=== PATIENT | female | born 1995 | race Caucasian/White ===

== ENCOUNTER 2022-12-27 07:46 | Emergency (ER) | payer OTHER, SELFPAY ==
--- NOTE | ~2022-12-27 | XR_ITS ---
EXAMINATION: XR FOREARM, RIGHT CLINICAL INFORMATION: Forearm pain COMPARISON: None available. TECHNIQUE: AP and lateral views of the right forearm were obtained. FINDINGS: No radiopaque foreign body. No fracture or destructive lesion or alignment abnormality. XR/XR forearm RT 2V IMPRESSION: Negative
[2022-12-27 07:56] VITALS: BP 120/75; PULSE 54; RESP 16; TEMP 36.6; O2SAT 99; BMI 20.1
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
--- OUTSIDE RECORDS SUMMARY | 2022-12-27 08:28 | XMS_ITS | Continuity of Care Document ---
Author Name Unknown [facility] n[facility] Address [address], [address] [place] [address]- Care Team Providers Care Airline Manager Name Role Phone Aldair Lucas DO Primary Care Physician Encounter [facility] Date(s): 08/31/20 - 09/30/20 [facility] Laniemonty MilliganNotizzas [facility] [address], [address] [place], [place] [address] Referring Physician: Keke EUCEDA, Lorranie Soares Allergies, Adverse Reactions, Alerts Substance Reaction Severity Status Keflex Active Medications Jeanne 3 mg-0.03 mg oral tablet 1 tablet, By Mouth, Daily, # 84 tablet, 1 Refills, Maintenance, 04/04/20 16:39:00 EDT, Tablet, [id number], 1 tablet By Mouth Daily, 168, cm, 10/12/19 8:29:00 EDT, Height Start Date: 04/04/20 Status: Ordered Social History Social History Type Response Smoking Status Never (less than 100 in lifetime) entered on: 10/12/19 Sex
--- OUTSIDE RECORDS SUMMARY | 2022-12-27 08:28 | XMS_ITS | Continuity of Care Document ---
Author Name Unknown Organization [facility] Lanie chiuindoo.rss [facility] Address [address], [address] [place] [address]- Care Team Providers Care Law Enforcement Director Name Role Phone Aldair Lucas DO Primary Care Physician [phone] Encounter [facility] Date(s): 07/06/21 - 08/05/21 [facility] Laniemonty Milliganindoo.rss [facility] [address], [address] [place], [place] [address] Allergies, Adverse Reactions, Alerts Substance Reaction Severity Status Keflex Active Medications fluconazole 150 mg oral tablet 1 tablet = 150 mg, By Mouth, Once, repeat dose if still having symptoms in 72 hours, # 2 tablet, 0 Refills, Soft Stop, 07/06/21 15:07:00 EST, Tablet, [id number], Partial fill upon patient request if the prescription is for a schedule II opioid... Start Date: 07/06/21 Status: Ordered Jeanne 3 mg-0.03 mg oral tablet 1 [...]
--- OUTSIDE RECORDS SUMMARY | 2022-12-27 08:28 | XMS_ITS | Continuity of Care Document ---
Author Name Unknown Organization [facility] Lanie Mejia nBuddyTVs [facility] Address [address], [address] [place] [address]- Care Team Providers Care Sales Merchandiser Name Role Phone Aldair Lucas DO Primary Care Physician En[facility] Date(s): 12/04/19 - 01/03/20 [facility]mon[facility] MilliganBuddyTVs [facility] [address], [address] [place] [address]- [facility] Attending Physician: Malcolm Arroyo Admitting Physician: Malcolm Arroyo Referring Physician: Malcolm Arroyo Allergies, Adverse Reactions, Alerts Substance Reaction Severity Status Keflex Active Medications Jeanne 3 mg-0.03 mg oral tablet 1 tablet, By Mouth, Daily, # 84 tablet, 2 Refills, Maintenance, 10/12/19 11:15:00 EDT, Tablet, [id number], 1 tablet By Mouth Daily, 168, cm, 10/12/19 8:29:00 EDT, Height Start Date: 10/12/19 Status: Ordered Social History Social History Type Response Smoking Status Never (less than 100 in lifetime) entered on: 10/12/19 Sex
--- OUTSIDE RECORDS SUMMARY | 2022-12-27 08:28 | XMS_ITS | Continuity of Care Document ---
Author Name Unknown Organization [facility] Address [address] [place] [address], [address] [place] [address]- Care Team Providers Care Upper Cutter Out Name Role Phone Lorraine Davies MD Primary Care Physician [place] [facility] [place] 07/20/22 - 08/19/22 [facility] [address] [place] [address], [address] [place], [place] [address] Allergies, Adverse Reactions, Alerts Substance Reaction Severity Status Keflex Active Medications ibuprofen 800 mg oral tablet 800 mg, 1, tablet, By Mouth, 3 times a day, # 270 tablet, Refills 0, Maintenance, 01/22/22 13:57:00EDT, Partial fill upon patient request if the prescription is for a schedule II opioid drug. Start Date: 01/22/22 Status: Ordered promethazine 25 mg oral tablet 1 tablet = 25 mg, By Mouth, 3 times a day, PRN for nausea/vomiting, Caution - may be sedating. Do not drive, operate machinery, etc. after taking., # 60 tablet, 0 Refills, Maintenance, 01/21/22 10:16:00 EDT, Tablet, [id number], Partial fill up... Start Date: 01/21/22 Status: Ordered Social History Social History Type Response Smoking Status Never (less than 100 in lifetime) entered on: 10/12/19 Sex Patient Care team information Care Team Personnel Name: Rome EUCEDA, Peyton Fuller Position: [facility] HIGH SCHOOL ASSISTANT FOOTBALL COACH MD Member Role: Lifetime HIGH SCHOOL ASSISTANT FOOTBALL COACH Physician Address: Address: [address] [place] [address], [address] [place] [address]- Name: Lorraine Davies MD Position: [facility] Outreach Member Role: PCP Address: Address: [address] [place] [address] Ave [address] [place] [address]- Care Team Related Persons Name: YESSENIA DOE Address: home [address] [place] [address]
--- OUTSIDE RECORDS SUMMARY | 2022-12-27 08:28 | XMS_ITS | Continuity of Care Document ---
Author Name Unknown Organization [facility] Lanie chiu[facility]3 [facility] Address [address], [address] [place] [address]- Care Team Providers Care First Dyer Name Role Phone Aldair Lucas DO Primary Care Physician Encounter [facility] Date(s): 06/23/19 - 07/03/19 [facility] [place] MilliganV3 System[facility] [address], [address] [place] [address]- Attending Physician: Malcolm Arroyo Admitting Physician: Malcolm Arroyo Referring Physician: AdmtrMalcolm Allergies, Adverse Reactions, Alerts Substance Reaction Severity Status Keflex Active Medications Jeanette 3 mg-0.02 mg oral tablet See Instructions, # 84 tablet, Refills 3 Tot. Refills 3, TAKE 1 TABLET BY MOUTH DAILY,INSTR:BRAND NAME ONLY NO SUBSTITUTIONS MEDICALLY NECESSARY, [id number] Start Date: 12/22/18 Status: Ordered Social History Social History Type Response Smoking Status Never smoker entered on: 07/15/17 Sex
--- OUTSIDE RECORDS SUMMARY | 2022-12-27 08:28 | XMS_ITS | Continuity of Care Document ---
Author Name Unknown Organization [facility] Address [address] [place] [address], [address] [place] [address]- Care Team Providers Care Traffic Incident Management Manager Name Role Phone Lorraine Davies MD Primary Care Physician Encounter [facility] Date(s): 07/20/22 - 08/19/22 [facility] [address] [place] [address], [address] [place] [address]- Allergies, Adverse Reactions, Alerts Substance Reaction Severity [...] Personnel Name: Rome EUCEDA, Peyton Fuller Position: [facility] MODELING ANALYST MD Member Role: Lifetime MODELING ANALYST Physician Address: Address: [address] [place] [address], [address] [place] [address]- Name: Lorraine Davies MD Position: [facility] Outreach Member Role: PCP Address: Address: [address] [place] [address] [address] [place] [address]- Care Team Related Persons Name: YESSENIA DOE Address: home [address] [place] [address]
--- OUTSIDE RECORDS SUMMARY | 2022-12-27 08:28 | XMS_ITS | Continuity of Care Document ---
Author Name Unknown Organization [facility] Lanie Mejia nSchedule [facility] Address [address], [address] [place] [address]- Care Team Providers Care Prototype Fabricator Name Role Phone Aldair Lucas DO Primary Care Physician [place] [facility] [place] 04/28/19 - 07/23/19 [facility] Lanie MilliganSchedule [facility] [address], [address] [place] [address]- Attending Physician: Rome EUCEDA, Peyton Fuller Referring Physician: Aldair Lucas DO Allergies, Adverse Reactions, Alerts Substance Reaction Severity Status Keflex Active Medications Jeanette 3 mg-0.02 mg oral tablet See Instructions, # 84 tablet, Refills 3 Tot. Refills 3, TAKE 1 TABLET BY MOUTH DAILY,INSTR:BRAND NAME ONLY NO SUBSTITUTIONS MEDICALLY NECESSARY, [id number] Start Date: 12/22/18 Status: Ordered Social History Social History Type Response Smoking Status Never smoker entered on: 07/15/17 Sex
--- OUTSIDE RECORDS SUMMARY | 2022-12-27 08:28 | XMS_ITS | Continuity of Care Document ---
Author Name Unknown Organization [facility] Lanie Mej[facility] n[facility] Group Address [address], [address] [place] [address]- Care Team Providers Care Hydro Plant Site Manager Name Role Phone Aldair Lucas DO Primary Care Physician Encounter [facility] Date(s): 04/04/20 - 05/04/20 [facility] Lanie Rosarios [facility] [address], [address] [place] [address]- [facility] Allergies, Adverse Reactions, Alerts Substance Reaction Severity [...]
--- OUTSIDE RECORDS SUMMARY | 2022-12-27 08:28 | XMS_ITS | Continuity of Care Document ---
Author Name Unknown Organization [facility] Lanie Mejia nGerardos [facility] Address [address], [address] [place] [address]- Care Team Providers Care Junior Architect Name Role Phone Aldair Lucas DO Primary Care Physician [place] [facility] [place] 09[place]05[place]19 - 01/03/20 [facility] Lanie Rosarios [facility] [address], [address] [place] [address]- [facility] Attending Physician: Rome EUCEDA, Peyton Fuller Allergies, Adverse Reactions, Alerts Substance Reaction Severity Status Keflex Active Medications Jeanne 3 mg-0.03 mg oral tablet 1 tablet, By Mouth, Daily, # 84 tablet, 2 Refills, Maintenance, 10/12/19 11:15:00 EDT, Tablet, [id number], 1 tablet By Mouth Daily, 168, cm, 10/12/19 8:29:00 EDT, Height Start Date: 10/12/19 Status: Ordered Social History Social History Type Response Smoking Status Never (less than 100 in lifetime) entered on: 10/12/19 Sex
--- OUTSIDE RECORDS SUMMARY | 2022-12-27 08:28 | XMS_ITS | Continuity of Care Document ---
Author Name Unknown Organization [facility] Lanie chiuPEAK [facility] Address [address], [address] [place] [address]- Care Team Providers Care Thermal Engineer Name Role Phone Aldair Lucas DO Primary Care Physician [place] [facility] Date(s): 10/12/19 - 10/22/19 [facility] Est[facility]iamonty MilliganPEAK Surgical[facility] [address], [address]th [place] [address]- Attending Physician: Malcolm Arroyo Admitting Physician: Malcolm Arroyo Referring Physician: AdmtrMalcolm Allergies, Adverse Reactions, Alerts Substance Reaction Severity Status Keflex Active Medications Jeanne 3 mg-0.03 mg oral tablet 1 tablet, By Mouth, Daily, # 84 tablet, 2 Refills, Maintenance, 10/12/19 11:15:00 EDT, Tablet, [id number], 1 tablet By Mouth Daily, 168, cm, 10/12/19 8:29:00 EDT, Height Start Date: 10/12/19 Status: Ordered Social History Social History Type Response Smoking Status Never (less than 100 in lifetime) entered on: 10/12/19 Sex
--- OUTSIDE RECORDS SUMMARY | 2022-12-27 08:28 | XMS_ITS | Continuity of Care Document ---
Author Name Unknown Organization [facility] Lanie Mejia nGerardos Group Address [address], [address] [place] [address]- Care Team Providers Care Tube Test Technician Name Role Phone Aldair Lucas DO Primary Care Physician En[place] [facility] Date(s): 08/27/19 - 11/11/19 [facility] Lanie MilliganJijindou.coms [facility] [address], [address] [place] [address]- [facility] Attending Physician: Rome EUCEDA, Peyton Fuller Allergies, Adverse Reactions, Alerts Substance Reaction Severity Status Keflex Active Medications Jeanne 3 mg-0.03 mg oral tablet 1 tablet, By Mouth, Daily, # 84 tablet, 2 Refills, Maintenance, 10/12/19 11:15:00 EDT, Tablet, [id number], 1 tablet By Mouth Daily, 168, cm, 10/12/19 8:29:00 EDT, Height Start Date: 10/12/19 Status: Ordered Social History Social History Type Response Smoking Status Never (less than 100 in lifetime) entered on: 10/12/19 Sex
--- OUTSIDE RECORDS SUMMARY | 2022-12-27 08:28 | XMS_ITS | Continuity of Care Document ---
Author Name Unknown Organization [facility] Laniemonty chiuiRatess [facility] Address [address], [address] [place] [address]- Care Team Providers Care Television Repair Teacher Name Role Phone Lorraine Davies MD [id number] - 01/29/22 [facility] Helixmonty MilliganiRatess [facility] [address] [address] [facility], [address]th [place] [address]- Attending Physician: Peyton Peter MD Referring Physician: Lorraine Davies MD Allergies, Adverse Reactions, Alerts Substance Reaction Severity [...] Refills, Maintenance, 01/21/22 10:16:00 EDT, Tablet, [id number], Partial fill up... Start Date: 01/21/22 Status: Ordered Vital Signs Most recent to oldest [Reference Range]: 1 Height 168.00 cm (01/22/22 1:54 PM) Weight 60.00 kg (01/22/22 1:54 PM) Body Mass Index [18.5-24.99] 21.26 (01/22/22 1:54 PM) Blood Pressure [90-138/55-84 mm Hg] 90/5 2mm Hg (01/22/22 1:54 PM) Temperature [96.8-100.4 DegF] 98.0 DegF (01/22/22 1:54 PM) Blood pressure sites Arm, right (01/22/22 1:54 PM) Temperature Route Oral (01/22/22 1:54 PM) Weight Obtained Via Standing scale (01/22/22 1:54 PM) Social History Social History Type Response Smoking Status Never (less than 100 in lifetime) entered on: 10/12/19 Sex
--- OUTSIDE RECORDS SUMMARY | 2022-12-27 08:28 | XMS_ITS | Continuity of Care Document ---
Author Name Unknown Organization [facility] Lanie Mejia nGerardos Group Address [address], [address] [place] [address]- Care Team Providers Care Statuary Painter Name Role Phone Aldair Lucas DO Primary Care Physician [place] [facility] [place] 10/12/19 - 10/19/19 [facility] Lanie Rosarios [facility] [address], [address] [place] [address]- Attending Physician: Rome EUCEDA, Peyton Fuller Allergies, Adverse Reactions, Alerts Substance Reaction Severity Status Keflex Active Medications Jeanne 3 mg-0.03 mg oral tablet 1 tablet, By Mouth, Daily, # 84 tablet, 2 Refills, Maintenance, 10/12/19 11:15:00 EDT, Tablet, [id number], 1 tablet By Mouth Daily, 168, cm, 10/12/19 8:29:00 EDT, Height Start Date: 10/12/19 Status: Ordered Vital Signs Most recent to oldest [Reference Range]: 1 Height 168.00 cm (10/12/19 8:29 AM) Social History Social History Type Response Smoking Status Never (less than 100 in lifetime) entered on: 10/12/19 Sex
--- OUTSIDE RECORDS SUMMARY | 2022-12-27 08:28 | XMS_ITS | Continuity of Care Document ---
Author Name Unknown Organization [facility] Lanie chiuHazelcasts [facility] Address [address], [address] [place] [address]- Care Team Providers Care Preparing Box Tender Name Role Phone Shayy Aldair HUGHES Primary [facility] Physician [id number] - 07/12/21 [facility] Manlymonty MilliganHazelcasts [facility] [address] [facility], [address] [place] [address]- Attending Physician: Peyton Peter MD Referring Physician: Not on Staff, Referring MD Allergies, Adverse Reactions, Alerts Substance Reaction [...]
--- OUTSIDE RECORDS SUMMARY | 2022-12-27 08:28 | XMS_ITS | Continuity of Care Document ---
Author Name Unknown Organization [facility] Laniemonty chiuChartios [facility] Address [address], [address] [place] [address]- Care Team Providers Care Energy Project Manager Name Role Phone Aldair Lucas DO Primary Care Physician Encounter [facility] [place] Date(s): 07/05/21 - 08/04/21 [facility] ilab SriniChartios [facility] [address] [place], [place] [address] Attending Physician: Malcolm Arroyo Admitting Physician: AdmtrMalcolm Referring Physician: AdmtrMalcolm Allergies, Adverse Reactions, Alerts [...]
--- OUTSIDE RECORDS SUMMARY | 2022-12-27 08:28 | XMS_ITS | Continuity of Care Document ---
Author Name Unknown Organization [facility] Address [address], [address] [place] [address]- Care Team Providers Care Strategy Specialist Name Role Phone Aldair Lucas DO Primary Care Physician [phone] Encounter [facility] [place] Date(s): 07/05/21 - 08/04/21 [facility]aniemonty [facility] [address] [place] [address]- Allergies, Adverse Reactions, Alerts Substance Reaction Severity [...]
--- OUTSIDE RECORDS SUMMARY | 2022-12-27 08:28 | XMS_ITS | Continuity of Care Document ---
Author Name Unknown Organization [facility] Lanie [facility] [facility] Address [address], [address] [place] [address]- Care Team Providers Care Supervisory Geographer Name Role Phone Aldair Lucas DO Primary Care Physician Encounter [facility] [place] Date(s): 08/29/20 - 09/05/20 [facility] Lanie Rosarios [facility] [address], [address] [place] [address]- Attending Physician: [place] EUCEDA, Peyton Fuller Allergies, [...]
--- OUTSIDE RECORDS SUMMARY | 2022-12-27 08:28 | XMS_ITS | Continuity of Care Document ---
Author Name Unknown [facility] Address [address], [address] [place] [address]- Care Team Providers Care Bell Captain Name Role Phone Aldair Lucas DO Primary Care Physician [place] [facility] [place] 08/29/20 - 09/28/20 [facility] Laniemonty Milliganilohos [facility] [address] [place], [place] [address] Attending Physician: Malcolm Arroyo Admitting Physician: Malcolm Arroyo Referring Physician: AdmMalcolm hunt Allergies, Adverse Reactions, Alerts Substance Reaction Severity [...]
[2022-12-27] MEDS: Acetaminophen 325 MG TABLET 975 MG PO (08:39)
[2022-12-27] MEDS: hydrOXYzine HCL 50 MG TABLET PO (09:45)
== END 2022-12-27 09:48 | disposition home or self-care (01) ==
PROVIDERS: Emergency Provider Student in an Organized Health Care Education/Training Program; PCP Internal Medicine
DX: Z04.1 Encounter for examination and observation following transport accident (principal); M79.601 Pain in right arm
CPT/HCPCS: 73090; 99283; 99284

== ENCOUNTER 2025-01-10 09:03 | Emergency (ER) | payer OTHER, SELFPAY ==
--- NOTE | ~2025-01-10 | US_ITS ---
CLINICAL HISTORY: sever plevic pain caused syncope US pelvis transabdominal and transvaginal with color and duplex Doppler Comparison: None Findings: Transabdominal scanning performed for overall anatomy. Transvaginal scanning performed for additional detail. LMP: 01/10/2025 Anteverted uterus, normal size and echotexture, measuring 7.3 x 3.3 x 4.2 cm. Well defined endometrium, measuring default value mm in thickness. 8.0 Uterine fibroid: Superior fundal intramural 1.0 x 1.1 x 1.0 cm The right ovary measures, 3.0 x 1.8 x 1.9 cm. Normal sonographic appearance right ovary. Normal color Doppler with normal ovarian arterial and venous spectral tracing, The left ovary measures, 2.7 x 2.2 x 2.3 cm. Normal sonographic appearance left ovary. Normal color Doppler with normal ovarian arterial and venous spectral tracing. No adnexal masses or fluid collections. No free fluid Impression: 1. Intramural fundal fibroid. Normal thickness endometrium. 2. Normal sonographic appearance of the ovaries with normal spectral doppler interrogation 3. No adnexal masses or fluid collections This document has been electronically signed by: Vikas Gotti MD on 01/10/2025 11:22:34
[2025-01-10 09:04] VITALS: BP 116/69; PULSE 72; RESP 18; TEMP 36.4; O2SAT 95; BMI 20.7
[2025-01-10 09:33] LABS: MANUAL DIFF FLAG NO
[2025-01-10 09:34] LABS: Hematocrit 38.6 % (37.0-47.0); Hemoglobin 13.9 g/dl (12.0-16.0); Imm Gran Abs Auto 0.05 X10*3/uL (0.00-0.03); Imm Gran Pct Auto 0.5 % (0.0-0.4); Lymphocytes Absolute Auto 1.6 X10*3/uL (1.2-4.9); Mean Corpuscular HGB Conc 36.0 g/dl (31.0-35.0); Mean Corpuscular Hemoglobin 33.6 pg (27.0-33.0); Mean Corpuscular Volume 93.2 fL (80.0-98.0); NRBC Abs Auto 0.000 X10*3/uL (0.0-0.012); NRBC Pct Auto 0.0 /100WBC (0.0-0.2); Platelet Count 191 X10*3/uL (160-400); Red Blood Count 4.14 X10*6/uL (4.20-5.50); White Blood Count 10.3 X10*3/uL (4.8-10.8)
[2025-01-10 09:37] LABS: Appearance Urine Cloudy; Glucose Urine UA Negative (Negative); PH 7.5 (5.0-9.0); Specific Gravity - Urine 1.025 (1.005-1.025); UMIC TRIGGER UACC YES
[2025-01-10 09:42] LABS: UACC Culture Trigger YES
--- NOTE | 2025-01-10 10:03 | ED_ITS ---
HPI - Abdominal Pain General Chief Complaint: Abdominal Pain Stated Complaint: period cramping Time Seen by Provider: 01/10/25 09:14 Source: patient and family Mode of arrival: ambulatory Limitations: no limitations History of Present Illness ED Provider: DR. Barajas HPI narrative: 29-year-old female history of premenstrual abdominal cramps that typically happen every other period, Patient started her period this morning when she started to have severe pelvic pain feels like cramps radiating to the back, patient sustained a syncopal episode after experiencing severe pelvic cramps, LOC for few sec, +diaphoresis, patient decided come to the for further evaluation, no chance of being . patient felt nauseous and vomited once. In the ED patient report some improvement. no dysuria, no frequency urination, no hematuria, no fever, chills, no abdominal pain , no chest pain. Related Data Previous Rx's ?Medication ?Instructions ?Recorded naproxen 500 mg tablet 500 mg PO BID PRN pain 7 day s #14 12/27/22 tabs Allergies Allergy/AdvReac Type Severity Reaction Status Date / Time cephalexin (From KEFLEX) Allergy Unknown HIVES Verified 01/10/25 09:08 Review of Systems Review of Systems All other systems are reviewed and are negative Constitutional: Reports as per HPI and Reports no additional constitutional complaints Eyes: Reports as per HPI and Reports no additional eye complaints Reports system reviewed and no additional complaints, except as documented Cardiovascular: Reports as per HPI and Reports no additional cardiovascular complaints Respiratory: Reports as per HPI and Reports no additional respiratory complaints Gastrointestinal: Reports as per HPI and Reports no additional gastrointestinal complaints Genitourinary: Reports no additional female genitourinary complaints Musculoskeletal: Reports no additional musculoskeletal complaints Skin/Breast: Reports system reviewed and no additional complaints, except as docu Psychiatric: Reports no additional psychiatric complaints Endocrine: Reports no additional endocrine complaints Hematologic/Lymphatic: Reports no additional hematologic/lymphatic complaints Allergic/Immunologic: Reports no additional allergic/immunologic complaints Reports system reviewed and no additional complaints, except as documented and Reports Abnormal speech present PMFSH Social History Social History Alcohol intake: current Smoked in Last 30 Days: No Substance Use Type: Marijuana Advance Directives: No Advance Directives Information Provided: No Do you have a plan to hurt others: No Plan Physical Exam ED Vital Signs: Vital Signs - 24 hr 01/10/25 09:04 01/10/25 10:10 Temperature 97.6 F Pulse Rate 72 56 Respiratory Rate 18 16 Blood Pressure 116/69 103/52 L Pulse Oximetry 95 96 Oxygen Delivery Method Room Air Room Air BMI result Body Mass Index 20.7 Vital signs have been reviewed and appear to be correct. Blood pressure elevated. Heart rate normal. Respiratory rate normal. Temperature normal. Oxygen saturation normal. Appearance: Alert. Oriented X3. No acute distress. Head: Normal external exam. Normocephalic. Atraumatic. No Frey signs noted. No raccoon eyes noted Eyes: PERRLA. EOMI. Conjunctiva and sclera normal. Eyelids normal. ENT: TM's Normal. Pharynx normal. Uvula midline. Moist mucous membranes. No trismus noted. No drooling noted. No muffled voice noted. Neck: Normal inspection. Neck supple. FROM. No adenopathy. Thyroid Normal. No meningeal signs. No neck mass noted. CVS: Normal heart rate and rhythm. Heart sound normal. No murmurs noted. Pulses normal throughout. Respiratory: No respiratory distress. Painless inspiration. Breath sounds normal. No wheezes/rales/rhonchi noted. Chest nontender. No accessory muscle usage noted or decreased air movement noted. Abdomen: Soft and nontender. Bowel sounds normal in all 4 quadrants. No distention noted. No organomegaly noted. No visible injury noted. Back: No CVA tenderness. Full range of motion noted. Skin: Skin warm and dry. Normal skin color. Normal skin turgor. No rashes/lesions/lacerations noted. Extremities: No lower extremity edema. Extremities exhibit normal range of motion. Extremities nontender. Neuro: Oriented X 3. Cranial nerve exam: II-XII are grossly intact No motor deficit. No sensory deficit. Reflexes normal. Course Reevaluation(s) Reevaluation #1: Came in for evaluation of abdominal cramps patient with history of abdominal cramps with her menstruation, started her menstruation today. Patient also had vasovagal syncopal episode while she is having severe pain. Patient now feels much better no abdominal cramps, labs are unremarkable, ultrasound is showing small fibroid. Will refer the patient to follow-up with Dr. Gilmore Time: 12:06 Medical Decision Making Differential Diagnosis Differential Diagnoses: The differential diagnosis associated with the presentation includes ( UTI, pelvic cramps related to menstruation, , electrolyte derangement, severe anemia.) Admission/Observation Consideration of admission/observation: Escalation of care including admission/observation considered Lab Data MDM Lab Attestation statement: I reviewed the patient's lab results. 01/10/25 09:26 01/10/25 09:26 Labs: Lab Results 01/10/25 01/10/25 Range/Units 09:26 09:29 WBC 10.3 (4.8-10.8) X10*3/uL RBC 4.14 L (4.20-5.50) X10*6/uL Hgb 13.9 (12.0-16.0) g/dl Hct 38.6 (37.0-47.0) % MCV 93.2 (80.0-98.0) fL MCH 33.6 H (27.0-33.0) pg MCHC 36.0 H (31.0-35.0) g/dl RDW 11.4 (11.0-16.0) % Plt Count 191 (160-400) X10*3/uL MPV 10.0 (9.4-12.3) fL Immature Gran % (Auto) 0.5 H (0.0-0.4) % Neut % (Auto) 77.0 H (45-73) % Lymph % (Auto) 15.7 L (20-40) % Izard % (Auto) 4.8 (2-11) % Eos % (Auto) 1.6 (0-4) % Baso % (Auto) 0.4 (0-2) % Lymph # (Auto) 1.6 (1.2-4.9) X10*3/uL Izard # (Auto) 0.5 (0.1-1.2) X10*3/uL Eos # (Auto) 0.2 (0.0-0.4) X10*3/uL Baso # (Auto) 0.0 (0.0-0.2) X10*3/uL Abs Immat Gran (auto) 0.05 H (0.00-0.03) X10*3/uL Absolute Neuts (auto) 7.9 (2.0-8.3) x10*3/uL Absolute Nucleated RBC 0.000 (0.0-0.012) X10*3/uL Nucleated RBC % (auto) 0.0 (0.0-0.2) /100WBC Sodium 141 (135-145) mmol/L Potassium 3.8 (3.3-5.1) mmol/L Chloride 110 H (96-108) mmol/L Carbon Dioxide 26 (22-29) mmol/L Anion Gap 9 L (12-20) BUN 14 (9-16) mg/dL Creatinine 0.78 (0.5-1.4) mg/dL Estim Creat Clear Calc 105.7 Estimated GFR > 60 Random Glucose 101 (60-115) mg/dL Calcium 8.8 (8.4-10.2) mg/dL Total Bilirubin 1.5 H (0.0-1.0) mg/dL AST 20 (5-31) U/L ALT 15 (0-31) U/L Alkaline Phosphatase 49 (39-117) U/L Total Protein 6.6 (6.5-8.0) g/dL Albumin 4.5 (3.5-5.0) g/dL Beta HCG, Quant < 2 mIU/mL Urine Color Dark Yellow Urine Appearance Cloudy Urine pH 7.5 (5.0-9.0) Ur Specific Hudson 1.025 (1.005-1.025) Urine Protein 30 (1+) H (Neg-Trace) mg/dL Urine Glucose (UA) Negative (Negative) mg/dL Urine Ketones Trace (Negative) mg/dL Urine Blood Large (3+) H (Negative) Urine Nitrite Negative (Negative) Ur Leukocyte Esterase Small (1+) H (Negative) Urine RBC >20 H (0-2) /HPF Urine WBC 6-10 H (0-5) /HPF Ur Squamous Epith Cells 11-20 (0-2) /HPF Urine Bacteria 2+ (None Seen) Hyaline Casts 0-2 (0-2) /LPF Independent Interpretation I performed an independent interpretation of an: Ultrasound (1. Intramural fundal fibroid. Normal thickness endometrium. 2. Normal sonographic appearance of the ovaries with normal spectral doppler interrogation 3. No adnexal masses or fluid collections) Radiology Impression Discussion of test interpretation with radiology: I have reviewed the radiologist's reading. Medications Administered Discontinued Medications Generic Name Dose Route Start Last Admin Trade Name Freq PRN Reason Stop Dose Admin Sodium Chloride 1,000 mls @ 999 mls/hr 01/10/25 10:01 01/10/25 10:21 Ns IV 01/10/25 11:01 999 mls/hr .Q1H1M ONE Administration Ketorolac Tromethamine 15 mg 01/10/25 10:02 01/10/25 10:21 Ketorolac Tromethamine 15 Mg/Ml Vial IVPUSH 01/10/25 10:03 15 mg ONCE ONE Administration Morphine Sulfate 1 mg 01/10/25 10:19 01/10/25 10:45 Morphine Sulfate 2 Mg/Ml Cartridge IVPUSH 01/10/25 10:20 1 mg ONCE ONE Administration Protocol Discharge Plan Discharge Clinical Impression: Crampy pain associated with menses Patient Disposition: Home, Self-Care Instructions: Premenstrual Syndrome (ED) Prescriptions: No Action naproxen 500 mg tablet 500 mg PO BID PRN (Reason: pain) 7 Days Qty: 14 0RF Referrals: Anton Gilmore MD [Physician, MANAGER HARDWARE] Print Language: Trinidadian
[2025-01-10 10:07] LABS: Alanine Aminotransferase 15 U/L (0-31); Albumin Level 4.5 g/dL (3.5-5.0); Alkaline Phosphatase 49 U/L (39-117); Anion Gap 9 (12-20); Aspartate Amino Transferase 20 U/L (5-31); Blood Urea Nitrogen 14 mg/dL (9-16); Calcium 8.8 mg/dL (8.4-10.2); Carbon Dioxide 26 mmol/L (22-29); Chloride 110 mmol/L (96-108); Creatinine Clr Calc Pharmacy 105.7; Estimated Glomerular Filt Rate > 60; Potassium 3.8 mmol/L (3.3-5.1); Sodium 141 mmol/L (135-145); Total Protein 6.6 g/dL (6.5-8.0)
[2025-01-10 10:10] VITALS: BP 103/52; PULSE 56; RESP 16; O2SAT 96
--- NOTE | 2025-01-10 10:25 | PC.NURSE ---
Patient is a 29 yo female who presents with menstrual cramps intermittently unbearable. Concerns for a ovarian cyst or endometriosis. Lungs clear bilat. Respirations even and non-labored. Abdomen with positive bowel sounds. c/o lower abdominal cramping and appears uncomfortable. U/S at the bedside. Positive pedal pulses with no edema.
--- NOTE | 2025-01-10 11:30 | PC.NURSE ---
1000cc Normal Saline bolus completed at 1130a.
== END 2025-01-10 13:04 | disposition home or self-care (01) ==
PROVIDERS: Emergency Provider Emergency Medicine
DX: R25.2 Cramp and spasm (principal); R61 Generalized hyperhidrosis; R55 Syncope and collapse; M54.50 Low back pain, unspecified; R10.2 Pelvic and perineal pain; Z79.899 Other long term (current) drug therapy
CPT/HCPCS: 36415; 76830; 76856; 80053; 81001; 84702; 85025; 87086; 93975; 96374; 96375; 99284; J1885; J2270

== ENCOUNTER → 2025-01-10 10:01 | Outpatient (BNV) | payer OTHER, SELFPAY | PROVIDERS: Emergency Provider Emergency Medicine; Visit Provider Radiology Diagnostic Radiology | DX: D25.9 Leiomyoma of uterus, unspecified (principal) | CPT/HCPCS: 76830; 76856 ==